=== PATIENT | female | born 1965 | race Caucasian/White ===

== ENCOUNTER 2018-08-26 13:25 | Emergency (ER) | payer MEDICARE ==
--- OUTSIDE RECORDS SUMMARY | 2018-08-26 13:47 | XMS REPORT | Continuity of Care Document ---
:1965 External Reference #:[id number] Author Name Telma Hearn Care Team Providers Name Role Phone Fabricio Walker M.D. Primary Care Physician Unavailable Payers Date Identification Numbers Payment Provider Subscriber Policy Number: [id number] [facility] Terra Morocho PayID: [id number] [address] [address] [place] [address] Advance Directives Description No Information Available Problems Active Problems Provider Date Multiple sclerosis Onset: Family History Date Family Member(s) Observation Comments General No Current Problems Father No Current Problems Mother No Current Problems Social History Type Date Description Comments Sex Unknown Marital Status Legal Status: Occupation It Work Status Disabled ETOH Use Occasionally consumes wine Tobacco Use Start: Unknown Patient has never smoked Recreational Drug Use Denies Drug Use Smoking Status Reviewed: 08/03/18 Patient has never smoked Allergies, Adverse Reactions, Alerts Active Allergies Reaction Severity Comments Date Topical Iodine/Betadine 07/23/2018 Medications Active Medications SIG Qnty Indications Ordering Provider Date Baclofen Fabricio Walker M.D. 10mg Tablets Gilenya Unknown 0.5mg Capsules Immunizations Description No Information Available Vital Signs Description No Information Available Results Description No Information Available Procedures Date Code Description Status 07/23/2018 53624 New Patient Comprehensive Exam Completed Encounters Description No Information Available Plan of Treatment Future Appointment(s):11/10/2018 9:00 am - Mayur Vasquez M.D. at [facility], pc08/03/2018 - Mayur Vasquez M.D.G35 Multiple sclerosisComments: Smoking can increase the risk of developing or worsening any eye related disease , as well as affect your overall health. If you are a smoker, we strongly recommend that you quit.If you are not a smoker, we strongly recommend that you do not start.H52.13 Myopia, bilateralComments:You have Myopia, or near sightedness. I have given you a prescription for glasses.H52.4 PresbyopiaComments:You have presbyopia. This is when the lens in your eye loses the ability to change focus, and happens as we age. A pair of reading glasses will help you see up close.
--- OUTSIDE RECORDS SUMMARY | 2018-08-26 13:47 | XMS REPORT | Continuity of Care Document ---
:1965 External Reference #:[id number] Author Name Mita Henning Care Team Providers Name Role Phone Fabricio Walker M.D. Care Team Information Etl Bi Developer Unavailable Payers Date Identification Numbers Payment Provider Subscriber Policy Number: [id number] Medicare Blue Ppo Terra [place] Group Number: [id number] [address] PayID: [id number] [address] [id number] Advance Directives Description No Information Available Problems Description No Information Family History Date Family Member(s) Observation Comments Father No Current Problems age 75 Mother Bipolar Disorder age 71, diagnosed bi-polar 1998 Siblings 4 all in good health Social History Type Date Description Comments Sex Unknown Marital Status Significant Other Lives With Male Partner 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 Hand Dominance Right-handed ETOH Use Drinks 2 Alcoholic Beverages Per Week Tobacco Use Start: Unknown Patient has never smoked Recreational Drug Use Denies Drug Use Smoking Status Reviewed: 08/11/18 Patient has never smoked Exercise Type/Frequency Exercises regularly cardio & weights 4-6 days week Allergies, Adverse Reactions, Alerts Date Description Reaction Status Severity Comments 04/01/2018 Iodine Difficulty breathing, Active Moderate no contrast dye unless Hives pre-medicated Medications Medication Date Status Form Strength Qnty SIG Indications Ordering Provider James 07/18/ Active Capsules 0.5mg 30cap take one Fabricio Flor 2018 s capsule (0.5 Parks, mg) by mouth M.D. each day. may take with or without food. store at room temperature. Baclofen 04/01/ Active Tablets 10mg 120ta 1 po qid G35 Fabricio Flor 2017 steph Walker M.D. Glatiramer 05/14/ Hx Soln 40mg/ml 12ml inject 40mg Fabricio S. Acetate 2019 - Prefill subcutaneously Parks, 07/17/ Syringe three times per M.D. 2019 week. Copaxone 05/11/ Hx Soln 40mg/ml 12uni inject 1 G35 Fabricio S. 2019 - Prefill ts syringe under Denise, 05/13/ Syringe the skin three M.D. 2019 times a week Prednisone / Hx Tablets 20mg tapers on her Unknown 0000 - own, 80 MG 3 08/11/ days, 60 MG 3 2018 days, 40 MG 3 days, 20 MG 3 days, 10 MG 3 days Stop Turmeric / Hx Capsules 500mg take one Unknown 0000 - capsule/tablet 05/10/ twice daily by 2019 mouth Immunizations Description No Information Available Vital Signs Date Vital Result Comment 08/11/2018 9:20am Height 62 inches 5'2" Weight 106.00 lb Heart Rate 66 /min BP Systolic Sitting 112 mmHg BP Diastolic Sitting 68 mmHg Respiratory Rate 15 /min BMI (Body Mass Index) 19.4 kg/m2 05/11/2018 8:46am Height 62 inches 5'2" Weight 106.00 lb Heart Rate 70 /min BP Systolic Sitting 112 mmHg BP Diastolic Sitting 68 mmHg Respiratory Rate 15 /min BMI (Body Mass Index) 19.4 kg/m2 04/01/2018 10:55am Height 62 inches 5'2" Weight 114.00 lb Heart Rate 68 /min BP Systolic Sitting 124 mmHg BP Diastolic Sitting 80 mmHg Respiratory Rate 16 /min BMI (Body Mass Index) 20.8 kg/m2 Results Test Date Facility Test Result H/L Range Note CBC Auto Diff 04/01/2018 [facility] White Blood 7.5 10^3/uL N 3.5-10.[address] [place] [address] [phone] Red Blood Count 4.95 10^6/uL N 4.00-5.40 Hemoglobin 14.8 g/dL N 12.0-16.0 Hematocrit 43 % N 35-47 Mean Corpuscular Volume 87 fL N 80-97 Mean Corpuscular Hemoglobin 30 pg N 27-31 Mean Corpuscular HGB Conc 34 g/dL N 31-36 Red Cell Distribution Width 13 % N 10.5-15 Platelet Count 325 10^3/uL N 150-450 Mean Platelet Volume 7.7 fL N 7.4-10.4 Abs Neutrophils 4.8 10^3/uL N 1.5-7.7 Abs Lymphocytes 1.8 10^3/uL N 1.0-4.8 Abs Monocytes 0.5 10^3/uL N 0-0.8 Abs Eosinophils 0.4 10^3/uL N 0-0.6 Abs Basophils 0 10^3/uL N 0-0.2 Abs Nucleated RBC 0 10^3/uL Granulocyte % 63.4 % Lymphocyte % 24.3 % Monocyte % 6.8 % Eosinophil % 4.9 % Basophil % 0.6 % Nucleated Red Blood Cells % 0 Comp Metabolic Panel 04/01/2018 [facility] Sodium 143 mmol/L N 135-[address] [place] [address] [phone] Potassium 4.0 mmol/L N 3.5-5.0 Chloride 108 mmol/L N 101-111 Co2 Carbon Dioxide 28 mmol/L N 22-32 Anion Gap 7 mmol/L N 2-11 Glucose 83 mg/dL N 70-100 Blood Urea Nitrogen 8 mg/dL N 6-24 Creatinine 0.62 mg/dL N 0.51-0.95 BUN/Creatinine Ratio 12.9 N 8-20 Calcium 9.6 mg/dL N 8.6-10.3 Total Protein 6.3 g/dL Low 6.4-8.9 Albumin 4.4 g/dL N 3.2-5.2 Globulin 1.9 g/dL Low 2-4 Albumin/Globulin Ratio 2.3 N 1-3 Total Bilirubin 1.70 mg/dL High 0.2-1.0 Alkaline Phosphatase 61 U/L N 34-104 Alt 14 U/L N 7-52 Ast 19 U/L N 13-39 Egfr Non- 101.1 >60 Egfr 122.3 >60 1 Stratify JCV 04/01/2018 [facility] JCV Antibody INDETERMINATE [address] [place] [address] [phone] Quantiferon Gold 04/01/2018 [facility] QuantiFERON- Negative Negative [address] [place] [address] [phone] TB1 Ag minus Nil Result -0.01 IU/mL TB2 Ag minus Nil Result -0.01 IU/mL TB Mitogen minus Nil Result 7.09 IU/mL TB Nil Result 0.05 IU/mL 4 T&B Cell 04/01/2018 [facility] Absolute CD45 2.00 thou/mcL 0.82-2.[address] [place] [address] [phone] Percent CD3 Cells (T Cells) 84 % 58-86 Percent CD19 Cells (B Cells) 3 % Abnormal 5-24 % CD16+CD56 Cells (NK Cells) 11 % 5-28 Percent CD4 Cell ([place] Cell) 59 % 32-64 Percent CD8 Cells (Supp Cell) 25 % 11-40 Absolute CD3 Count (T Cells) 1676 cells/L 550-2202 Absolute CD19 Count (B Cells) 63 cells/L 60-409 Absolute CD16+CD56 Count (NK) 229 cells/L 59-513 Absolute CD4 Count (Help Cell) 1187 cells/L 365-1437 Absolute CD8 Count (Supp Cell) 497 cells/L 117-846 T-[place]/Suppressor Ratio 2.4 >=0.9 T B Cell Comment See Comment 5 1 Because ethnic data is not always readily available, this report includes an eGFR for both -Americans and non- Americans. The National Kidney Disease Education Program (NKDEP) does not endorse the use of the MDRD equation for patients that are not between the ages of 18 and 70, are , have extremes of body size, muscle mass, or nutritional status, or are non- or non-. According to the National Kidney Foundation, irrespective of diagnosis, the stage of the disease is based on the level of kidney function: Stage Description GFR(mL/min/1.73 m(2)) 1 Kidney damage with normal or decreased GFR 90 2 Kidney damage with mild decrease in GFR 60-89 3 Moderate decrease in GFR 30-59 4 Severe decrease in GFR 15-29 5 Kidney failure <15 (or dialysis) 2 TEST PROCEDURE TEST RESULTS OUT OF RANGE REFERENCE RANGE STRATIFY JCV(TM) AB WITH INDEX W/REFLEX TO INHIBITION INDEX VALUE 0.33 H JCV Antibody INDETERMINATE Index interpretice criteria: <0.20 negative 0.20-0.40 indeterminate >0.40 positive INTERPRETATION: Negative: Antibodies to JCV not detected. Indeterminate:Low level reactivity detected, see Inhibition Assay result to follow for the final antibody result. Positive: Antibodies to DIEGO virus (JCV) detected indicating the patient has been exposed to JCV at an undetermined time. The STRATIFY JCV Antibody Test is an enzyme-linked immunoabsorbent assay (ERICKA) designed to detect JCV antibodies to help identify individuals who have been exposed to the virus. Samples with low level reactivity in the detection assay are retested in a confirmation (inhibition) assay to confirm presence or absence of JCV-specific antibodies. Test performed at: [facility] [place] [facility] [id number] [place] [phone] Director: Manuel Villegas MD [place] [id number] 3 No interferon-gamma response to M. tuberculosis antigens was detected. Infection with M. tuberculosis is unlikely. A single negative result does not exclude infection with M. tuberculosis. In patients at high risk for M.tuberculosis infection, a second test should be considered in accordance with the 2017 ATS/IDSA/CDC Clinical Practice Guidelines for Diagnosis of Tuberculosis in Adults and Children [Lewinsohn DM et. al. Clin. Infect. Dis. 2017;64(2):111-115]. 4 Test Performed by: [facility] [place] [address] 5 [facility] Department of Health recommends samples be tested within 30 hours of collection. This sample exceeds that cut-off. Please consider re-drawing the specimen if clinically indicated. Reviewed by: Rosa Shirley M.D., D. , D(MLI) ADDITIONAL INFORMATION Reference values implemented August 25, 2012. This test was developed using an analyte specific reagent. Its performance characteristics were determined by [facility] in a manner consistent with CLIA requirements. This test has not been cleared or approved by the U.S. Food and Drug Administration. 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 sclerosis Plan of Treatment Future Appointment(s):12/25/2018 3:00 pm - Fabricio Walker M.D. 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
--- NOTE | 2018-08-26 15:01 | ED ---
GI/ HPI - HPI Summary HPI Summary: A 52 y/o female present to [facility] with a chief complaint of being unable to empty her bladder for the past week. She reports that she has been able to urinate only about half of a cup the past week. She claims that today she only urinated a teaspoon and yesterday only urinated once. She notes that she has the urgency to urinate but cannot empty her bladder. She also reports that her legs and ankles are swollen with back pain. She denies fever or abdominal pain. She has been in [place] the past week. She has a Hx of MS and started Gilenya three weeks ago. She has difficulty walking due to MS. Dr. Walker is her neurologist and Dr. Benitez is her OB, but she has not seen a urologist. - History of Current Complaint Chief Complaint: EDUrogenitalProblems Time Seen by Provider: 08/26/18 14:43 Stated Complaint: HAS MS/CANT EMPTY BLADDER FOR 5 DAYS PER PT Hx Obtained From: Patient, Family/Finance Vice President Onset/Duration: Started Days Ago, Still Present Timing: Constant, Lasting Days Severity: Severe Current Severity: Severe Pain Intensity: 7 - out of 10 Location of Pain: Other - bladder Pain Characteristics: Unable to describe Pain Radiates to: Back Associated Signs and Symptoms: Positive: Back Pain, Other: - legs swollen. Negative: Fever, Abdominal Pain - Allergy/Home Medications Allergies/Adverse Reactions: Allergies Allergy/AdvReac Type Severity Reaction Status Date / Time Iodinated Contrast- Oral and Allergy Anaphylatic Verified 08/26/18 13:39 IV Dye Shock Home Medications: Home Medications Baclofen TAB* [Lioresal TAB*] 10 mg PO TID 08/26/18 [History Confirmed 08/26/18] PMH/Surg Hx/FS Hx/Imm Hx Endocrine/Hematology History: Denies: Hx Diabetes Cardiovascular History: Denies: Hx Hypertension, Hx Pacemaker/ICD History: Denies: Hx Renal Disease Sensory History: Denies: Hx Hearing Aid Neurological History: Reports: Other Neuro Impairments/Disorders - MS Psychiatric History: Denies: Hx Panic Disorder - Cancer History Cancer Type, Location and Year: 1987 - [facility] BIOPSY - CERVICAL CANCER Hx Chemotherapy: No Hx Radiation Therapy: No - Surgical History Surgery Procedure, Year, and Place: BREAST AUGMENTATION - SILICONE IMPLANT. VOCAL CORD NODULES Infectious Disease History: No Infectious Disease History: Reports: Traveled Outside the [place] in Last 30 Days - Family History Known Family History: Negative: Blood Disorder - Social History Alcohol Use: Weekly Substance Use Type: Reports: None Smoking Status (MU): Never Smoked Tobacco Review of Systems Negative: Fever Negative: Abdominal Pain Positive: urgency, other - positive: unable to empty bladder Positive: Myalgia - back pain, Edema - legs All Other Systems Reviewed And Are Negative: Yes Physical Exam - Summary Physical Exam Summary: Appearance: Well appearing, no pain distress Skin: warm, dry, reflects adequate perfusion Head/face: normal Eyes: EOMI, ALEJANDRINA ENT: normal Neck: supple, non-tender Respiratory: CTA, breath sounds present Cardiovascular: RRR, pulses symmetrical Abdomen: non-tender, soft, distended bladder Musculoskeletal: normal, strength/ROM intact Neuro: normal, sensory motor intact, A&Ox3 Triage Information Reviewed: Yes Vital Signs On Initial Exam: Initial Vitals Temp Pulse Resp BP Pulse Ox 99.6 F 93 18 175/94 99 08/26/18 13:35 08/26/18 13:35 08/26/18 13:35 08/26/18 13:35 08/26/18 13:35 Vital Signs Reviewed: Yes Diagnostics - Vital Signs Vital Signs Temp Pulse Resp BP Pulse Ox 08/26/18 13:35 99.6 F 93 18 175/94 99 - Laboratory Result Diagrams: 08/26/18 15:42 08/26/18 15:42 Lab Statement: Any lab studies that have been ordered have been reviewed, and results considered in the medical decision making process. Re-Evaluation - Re-Evaluation First Eval Re-Evaluation Time: 17:51 GIGU Course/Dx - Course Course Of Treatment: A 52 y/o female present to [facility] with a chief complaint of being unable to empty her bladder for the past week. The physical exam revealed a distended bladder. Bloodwork, chemistries and urines obtained. Discussed case with Dr. Whitten, who recommended that the patient follow up with him next week. The patient will be discharged with a prescription for Miralax and is agreeable with this plan. - Diagnoses Differential Diagnoses - Female: Urinary Tract Infection - urinary retention Provider Diagnoses: Urinary retention, Constipation - Physician Notifications Discussed Care Of Patient With: Manoj Whitten Time Discussed With Above Provider: 17:54 Instructed by Provider To: Other - wants to follow up with the patient next week Discharge - Sign-Out/Discharge Documenting (check all that apply): Patient Departure - DC Patient Received Moderate/Deep Sedation with Procedure: No - Discharge Plan Condition: Stable Disposition: HOME Prescriptions: Polyethylene Glycol 3350* [Miralax*] 17 gm PO DAILY #10 packet Referrals: Juliocesar Schultz MD [Primary Care Provider] - 3 Days Manoj Whitten MD [Medical Doctor] - (next week) Additional Instructions: Follow up with Dr. Whitten next week. Return to the ED if you experience any new or worsening symptoms. - Billing Disposition and Condition Condition: STABLE Disposition: Home - Attestation Statements Document Initiated by Scribe: Yes Documenting Scribe: Balta Pineda Provider For Whom Vanesa is Documenting (Include Credential): Percy Pendleton MD Scribe Attestation: Balta Noyola scribed for Percy Pendleton MD on 08/26/18 at 1829. Scribe Documentation Reviewed: Yes Provider Attestation: The documentation as recorded by the Balta gallo accurately reflects the service I personally performed and the decisions made by , Percy Pendleton MD Status of Scribe Document: Viewed
[2018-08-26 15:54] LABS: ABS Basophils 0 10^3/ul (0-0.2); ABS Eosinophils 0.2 10^3/ul (0-0.6); ABS Lymphocytes 0.2 10^3/ul (1.0-4.8); ABS Monocytes 0.7 10^3/ul (0-0.8); ABS Neutrophils 4.8 10^3/ul (1.5-7.7); ABS Nucleated RBC 0 10^3/ul; Eosinophil % 2.8 %; Hematocrit 38 % (33-41); Hemoglobin 12.9 g/dL (12.0-16.0); Lymphocyte % 3.6 %; Mean Corpuscular HGB Conc 34 g/dL (31-36); Mean Corpuscular Hemoglobin 29 pg (27-31); Mean Corpuscular Volume 87 fL (80-97); Mean Platelet Volume 8.3 fL (7.4-10.4); Nucleated Red Blood Cells % 0.1; Platelet Count 193 10^3/uL (150-450); Red Blood Count 4.39 10^6 /uL (3.70-4.87); Red Cell Distribution Width 13 % (10.5-15)
[2018-08-26 16:02] LABS: Activated Partial Thrombo Time 32.2 seconds (26.0-36.3); INR 0.97 (0.82-1.09)
[2018-08-26 16:19] LABS: Potassium 3.8 mmol/L (3.5-5.0); Total Bilirubin 0.7 mg/dL (0.2-1.0)
[2018-08-26 16:25] LABS: Albumin/Globulin Ratio 1.7 (1-3); BUN/Creatinine Ratio 33.3 (8-20); EGFR Non-African American 146.3 (>60); Globulin 2.3 g/dL (2-4); Total Protein 6.3 g/dL (6.4-8.9)
[2018-08-26 16:29] LABS: HCG Pregnancy 5.92 mIU/mL
[2018-08-26 16:50] LABS: Urine Appearance Cloudy; Urine Bilirubin Negative (Negative); Urine Blood 1+ (Negative); Urine Color Yellow; Urine Glucose Negative (Negative); Urine Ketones Trace (Negative); Urine Nitrite Negative (Negative); Urine Protein Negative (Negative); Urine Specific Gravity 1.013 (1.010-1.030); Urine Urobilinogen Negative (Negative)
[2018-08-26 17:22] LABS: Urine Squamous Epithelial Cell Present (Absent); Urine White Blood Cell Trace(0-5/hpf) (Absent)
[2018-08-26 17:23] LABS: Urine Red Blood Cell Trace(0-2/hpf) (Absent)
[2018-08-26 18:42] VITALS: BP 146/93
--- NOTE | 2018-08-28 16:30 | PN ---
Progress Note - Progress Note Date of Service: 08/26/18 Note: Pt. seen in ED 08/26 for urinary urgency and frequency. Urine culture growing 25- 50k e.coli. Given sxs will treat. Keflex rx based on culture. Attempted to call pt. today at 1628 with no answer, message left to return call.
== END 2018-08-26 18:40 | disposition home or self-care (01) ==
LOC: ED 13:25
DX: R33.9 Retention of urine, unspecified (principal); K59.00 Constipation, unspecified; G35 Multiple sclerosis; Z91.041 Radiographic dye allergy status; Z85.41 Personal history of malignant neoplasm of cervix uteri
CPT/HCPCS: 36415; 80053; 81003; 81015; 83690; 84702; 85025; 85610; 85730; 87077; 87086; 87186; 99282

== ENCOUNTER 2019-01-04 19:21 | Emergency (ER) | payer MEDICARE ==
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
[2019-01-04 20:52] VITALS: BP 153/87
== END 2019-01-04 20:51 | disposition home or self-care (01) ==
LOC: ED 19:21
DX: S69.92XA Unspecified injury of left wrist, hand and finger(s), initial encounter (principal); Y04.8XXA Assault by other bodily force, initial encounter; Y92.9 Unspecified place or not applicable; Z79.899 Other long term (current) drug therapy; Z91.041 Radiographic dye allergy status
CPT/HCPCS: 99282

== ENCOUNTER 2024-04-01 19:51 | Observation (INO) ==
[2024-04-01 20:34] LABS: ABS Eosinophils 0.1 10^3/uL (0.0-0.5); ABS Lymphocytes 0.9 10^3/uL (1.0-4.8); ABS Monocytes 0.9 10^3/uL (0.0-0.9); ABS Neutrophils 12.1 10^3/uL (1.5-7.6); ABS Nucleated RBC 0.01 10^3/ul; Eosinophil % 0.6 %; Hematocrit 46.4 % (35-45); Hemoglobin 15.8 g/dL (11.5-14.3); Lymphocyte % 6.6 %; Mean Corpuscular Hemoglobin 29.8 pg (27-33); Mean Corpuscular Hgb Conc 34.1 g/dL (31-36); Mean Corpuscular Volume 87.5 fL (80-97); Mean Platelet Volume 8.4 fL (7.5-11.2); Nucleated Red Blood Cells % 0.1 %/100WBC (0.0-0.8); Platelet Count 287 10^3/uL (150-450)
[2024-04-01 20:41] LABS: INR 0.98 (0.85-1.14)
[2024-04-01] MEDS: Ondansetron 4 mg VIAL 2 MG/ML 2 ml VIAL IV ONE (20:48)
[2024-04-01] MEDS: Lactated Ringers 1000 ml BAG 1,000 ML IV ONE (20:48)
[2024-04-01 21:12] LABS: Albumin 5.1 g/dL (3.2-5.2); Albumin/Globulin Ratio 2.4 (1-3); Calcium 10.3 mg/dL (8.6-10.3); Creatinine, Serum 0.9 mg/dL (0.51-0.95); Globulin 2.1 g/dL (2-4); Potassium 4.2 mmol/L (3.5-5.0); Total Bilirubin 0.8 mg/dL (0.2-1.0); Total Protein 7.2 g/dL (6.4-8.9); eGFR CKD-EPI 74.1 (>60)
[2024-04-01] MEDS: Morphine 2 MG/ML SYRINGE IV ONE (21:22)
[2024-04-01 21:52] LABS: High Sensitivity Troponin 1 Hr 5 pg/mL (<15)
[2024-04-01] MEDS: HYDROmorphone 1 MG/1 ML SYRINGE IV ONE (21:57)
[2024-04-01] MEDS: Piperacillin/Tazobac 3.375 BAG 3.375 GM/100 ML BAG IV ONE (23:05)
[2024-04-01] MEDS ORDERED: Ondansetron 4 mg VIAL 2 MG/ML 2 ml VIAL IV PRN (23:45)
[2024-04-02] MEDS: HYDROmorphone 1 MG/1 ML SYRINGE IV SLOW PU PRN (00:02)
[2024-04-02] MEDS: NS 0.9% 1000 ml BAG 1,000 ML IV SCH (02:29)
[2024-04-02] MEDS: Piperacillin/Tazobac 3.375 BAG 3.375 GM/100 ML BAG IV SCH ×2 (04:58→16:59)
[2024-04-02] MEDS: HYDROmorphone 0.5 MG/0.5 ML SYRINGE IV SLOW PU PRN (09:28)
[2024-04-02] MEDS ORDERED: HYDROmorphone 1 MG/1 ML SYRINGE IV SLOW PU PRN (10:40)
[2024-04-02] MEDS ORDERED: HYDROmorphone 0.5 MG/0.5 ML SYRINGE IV SLOW PU PRN ×2 (10:41→20:09)
[2024-04-02] MEDS ORDERED: Bupivacaine 0.5% SDV PF 30ML VIAL ONE (11:27)
[2024-04-02] MEDS ORDERED: ceFAZolin 2 GM PREMIX 2 GM/50 ML BAG ONE (13:08)
[2024-04-02] MEDS ORDERED: fentaNYL 100 mcg/2 ml 50 MCG/ML VIAL ONE ×3 (14:45→16:56)
[2024-04-02] MEDS ORDERED: HYDROmorphone 0.5 MG/0.5 ML SYRINGE ONE ×2 (14:45→15:59)
[2024-04-02] MEDS ORDERED: Phenylephrine 40 mcg/mL 10mL (400mcg) SYRINGE ONE (15:36)
[2024-04-02] MEDS ORDERED: Naloxone 0.4 mg VIAL 0.4 mg/ml 1 ml VIAL IV PRN ×2 (16:58→17:48)
[2024-04-02] MEDS ORDERED: Ondansetron 4 mg VIAL 2 MG/ML 2 ml VIAL IV PRN ×2 (16:58→17:46)
[2024-04-02] MEDS: fentaNYL 100 mcg/2 ml 50 MCG/ML VIAL IV PRN (17:03)
[2024-04-02] MEDS: DULoxetine DR 20 mg CAP PO SCH (21:14)
[2024-04-02] MEDS: PTO:Dalfampridine ER 10 mg (NF) TAB.ER.12H PO SCH (21:59)
[2024-04-03] MEDS: ceFAZolin 2 GM/50 ML BAG IV ONE (00:03)
[2024-04-03 10:00] VITALS: BP 123/59
== END 2024-04-03 13:10 | disposition home or self-care (01) ==
LOC: ED 19:51 → EDHOLD 19:51 → MED 04-02 06:18 → UNDODISOB 04-02 17:00
PROVIDERS: ADMIT Surgery Surgical Critical Care; ATTEND Surgery